=== PATIENT | female | born 1970 | race Hispanic/Latino ===

== ENCOUNTER 2022-11-08 08:33 | Emergency (ER) | payer MEDICARE ==
[~2022-11-08] VITALS: Ht 162.6 cm; Wt 60.0 kg
[2022-11-08 08:51] VITALS: BP 164/84
[2022-11-08] MEDS ORDERED: BACTRIM DS1 TAB PO (08:57)
[2022-11-08] MEDS ORDERED: CEPHALEXIN500 M1 PO (08:57)
[2022-11-08 09:00] VITALS: BP 128/82
[2022-11-08 09:04] VITALS: BP 128/82
== END 2022-11-08 09:21 | disposition home or self-care (01) ==
LOC: ED 08:33
DX: L03.031 Cellulitis of right toe (principal)

== ENCOUNTER 2023-03-25 06:51 | Day surgery (SDC) | payer MEDICARE ==
[~2023-03-25 06:51] MED LIST: ARIPIPRAZOLE5 MG PO; B121000 MC1 PO; BACTRIM DS1 TAB PO; BRIVIACT50 MG PO; CEPHALEXIN500 M1 PO; D350 MCG PO; FOLIC ACID1 M1 PO; OXCARBAZEPINE600 MG PO; PROTONIX40 M2 PO; ROSUVASTATIN CAL5 MG PO; TOPAMAX100 M1 PO; VENLAFAXINE H37.5 M1 PO
[2023-03-25 09:23] VITALS: BP 136/90
== END 2023-03-25 09:05 | disposition home or self-care (01) ==
LOC: ENDO 06:51 → ORM 08:20 → ENDO 08:40 → ORM 09:30
PROVIDERS: ATTEND Surgery
PROC: 0DJD8ZZ Inspection of Lower Intestinal Tract, Via Natural or Artificial Opening Endoscopic (ICD-10-PCS; principal; 2023-03-25)
PROC: 0DB78ZX Excision of Stomach, Pylorus, Via Natural or Artificial Opening Endoscopic, Diagnostic (ICD-10-PCS; 2023-03-25)
DX: K29.70 Gastritis, unspecified, without bleeding (principal); K31.9 Disease of stomach and duodenum, unspecified; K62.5 Hemorrhage of anus and rectum; K64.4 Residual hemorrhoidal skin tags; K64.8 Other hemorrhoids; G40.909 Epilepsy, unspecified, not intractable, without status epilepticus